=== PATIENT | female | born 1960 | race Two or more races ===

== ENCOUNTER 2019-12-13 07:09 | Emergency (ER) | payer OTHER ==
[~2019-12-13] VITALS: Ht 157.5 cm; Wt 86.2 kg
[~2019-12-13 07:09] MED LIST: ALTACE2.5 MG; ZITHROMAX200 MG PO
[2019-12-13] MEDS ORDERED: VISTARIL50 MG PO (11:56)
[2019-12-13] MEDS ORDERED: PEPCID AC20 MG PO (11:56)
== END 2019-12-13 12:22 | disposition home or self-care (01) ==
LOC: ER 07:09
DX: K29.70 Gastritis, unspecified, without bleeding (principal); I10 Essential (primary) hypertension

== ENCOUNTER 2019-12-24 03:27 | Emergency (ER) | payer OTHER ==
[~2019-12-24] VITALS: Ht 157.5 cm; Wt 83.9 kg
[~2019-12-24 03:27] MED LIST changes: +PEPCID AC20 MG PO; +VISTARIL50 MG PO
[2019-12-24] MEDS ORDERED: LEXAPRO5 MG PO (03:49)
[2019-12-24] MEDS ORDERED: ALTACE5 MG PO (06:51)
== END 2019-12-24 11:02 | disposition home or self-care (01) ==
LOC: ER 03:27
DX: I16.0 Hypertensive urgency (principal); I10 Essential (primary) hypertension; K21.9 Gastro-esophageal reflux disease without esophagitis; G44.209 Tension-type headache, unspecified, not intractable; F06.4 Anxiety disorder due to known physiological condition

== ENCOUNTER 2021-07-17 15:20 | Outpatient (CLI) | payer OTHER ==
[~2021-07-17 15:20] MED LIST changes: +ALTACE5 MG PO; +LEXAPRO5 MG PO
== END 2021-07-17 15:30 | disposition home or self-care (01) ==
LOC: PPH VACUNA 15:20
PROVIDERS: ATTEND Emergency Medicine Pediatric Emergency Medicine
DX: Z23 Encounter for immunization (principal)